=== PATIENT | male | born 1960 | race Caucasian/White ===

== ENCOUNTER → 2024-07-04 | Outpatient (CLI) | payer BC ==
--- NOTE | 2024-07-05 10:24 | CA ---
Exercise Stress Test Report Name: Pascual Phillip Exam Date: 07/04/2024 11:08 Exam Location: [place] Stress Ht (in): 71 Wt (lb): 180 BSA: 2.02 Ordering Phys: Matthias Oliveira MD Referring Phys: Law Gordon Technologist: Caleb Feldman Age: 63 Gender: M : 1960 Procedure CPT: Indications: r53.83 Other Fatigue ICD-10 Codes: Patient History: HYPERCHOLESTEROLEMIA, PRIOR SMOKER Medications: HYDROCODONE, CIALIS Meds past 24 hrs: Pretest Chest Pain: STRESS TEST [place] Protocol Exercise Duration (min:sec): 10:[address] Depressions (mm): Angina Score: Penaloza Score: Resting HR (bpm): 55 Peak HR (bpm): 144 Resting BP (mmHg): 123 / 88 Peak BP (mmHg): 168 / 94 MPHR: 156 Target HR: 133 % MPHR: 92 METS: 12.1 Total Dose: Peak Dose: Atropine: Double Product: 60083 BP Response: Stress Termination: TARGET HR REACHED/MAX EXERTION Stress Symptoms: CHEST PRESSURE,DIFFICULTY IN BREATHING Stress Summary: ECG ANALYSIS Resting ECG: Normal sinus rhythm Stress EC mm upsloping ST depressions noticed in inferior lead with peak stress. There were no sustained arrhythmias or ectopic beats noticed during the stress test. CONCLUSIONS Overall low probability for severe obstructive CAD Good exercise tolerance achieving 12.1 METS Normal hemodynamic response to treadmill exercise Patient did experience substernal chest pressure with exercise. ECG is not diagnostic for stress induced ischemia. Consider additional testing if patient continues to have exertional substernal chest pressure symptoms. Dr Kosta Silverman (Electronically Signed) Final Date: 04 July 2024 12:18
== END | disposition home or self-care (01) ==
LOC: RADNMMAIN 10:31
PROVIDERS: ATTEND Family Medicine
DX: R53.83 Other fatigue (principal); R07.89 Other chest pain; E78.00 Pure hypercholesterolemia, unspecified; Z87.891 Personal history of nicotine dependence
CPT/HCPCS: 93017